=== PATIENT | male | born 1935 | race Caucasian/White ===

== ENCOUNTER 2023-07-25 14:26 | Outpatient (CLI) | payer MEDICARE | END 2023-07-25 14:27 | disposition home or self-care (01) | LOC: SCSRAD 14:26 | PROVIDERS: ATTEND Family Medicine | DX: R05.1 Acute cough (principal); J90 Pleural effusion, not elsewhere classified | CPT/HCPCS: 36415; 71045; 71046; 83880; 84484; 86141 ==

== ENCOUNTER 2023-10-17 17:00 | Outpatient (CLI) | payer MEDICARE | END 2023-10-17 17:01 | disposition home or self-care (01) | LOC: SLEEPLAB 17:00 | PROVIDERS: ATTEND Internal Medicine | DX: G47.33 Obstructive sleep apnea (adult) (pediatric) (principal); R53.83 Other fatigue; E11.9 Type 2 diabetes mellitus without complications; E66.9 Obesity, unspecified; R06.83 Snoring; I25.10 Atherosclerotic heart disease of native coronary artery without angina pectoris; I10 Essential (primary) hypertension; M19.90 Unspecified osteoarthritis, unspecified site; F41.9 Anxiety disorder, unspecified; Z68.30 Body mass index [BMI] 30.0-30.9, adult; Z96.653 Presence of artificial knee joint, bilateral | CPT/HCPCS: 95800 ==